=== PATIENT | female | born 1985 ===

== ENCOUNTER 2018-06-27 11:25 | Emergency (ER) | payer SELFPAY | END 2018-06-27 12:53 | disposition left against medical advice (07) | LOC: ER 11:26 | DX: Z00.8 Encounter for other general examination (principal); Z53.21 Procedure and treatment not carried out due to patient leaving prior to being seen by health care provider ==

== ENCOUNTER 2018-07-07 10:19 | Emergency (ER) | payer MEDICAID ==
[~2018-07-07] VITALS: Ht 170.2 cm; Wt 49.5 kg
[2018-07-07] MEDS ORDERED: MUPI22OI30 TOP (11:22)
[2018-07-07] MEDS ORDERED: BACDS PO (11:22)
[2018-07-07 11:48] VITALS: BP 107/84
== END 2018-07-07 11:50 | disposition home or self-care (01) ==
LOC: ER 10:20
DX: L02.212 Cutaneous abscess of back [any part, except buttock and flank] (principal); F19.10 Other psychoactive substance abuse, uncomplicated; F17.200 Nicotine dependence, unspecified, uncomplicated; F15.90 Other stimulant use, unspecified, uncomplicated; Z60.2 Problems related to living alone; Z56.0 Unemployment, unspecified; Z59.0 Homelessness; Z79.899 Other long term (current) drug therapy
CPT/HCPCS: 99283